=== PATIENT | male | born 1995 | race Caucasian/White ===

== ENCOUNTER 2024-12-16 10:09 | Outpatient (REF) | payer OTHER, SELFPAY ==
[2024-12-16 12:59] LABS: MANUAL DIFF FLAG NO
[2024-12-16 13:17] LABS: Hematocrit 42.7 % (42.0-52.0); Hemoglobin 14.8 g/dl (14.0-18.0); Imm Gran Abs Auto 0.03 X10*3/uL (0.00-0.03); Imm Gran Pct Auto 0.6 % (0.0-0.4); Lymphocytes Absolute Auto 2.1 X10*3/uL (1.2-4.9); Mean Corpuscular HGB Conc 34.7 g/dl (31.0-36.0); Mean Corpuscular Hemoglobin 30.7 pg (27.0-33.0); Mean Corpuscular Volume 88.6 fL (80.0-98.0); NRBC Abs Auto 0.000 X10*3/uL (0.0-0.012); NRBC Pct Auto 0.0 /100WBC (0.0-0.2); Platelet Count 177 X10*3/uL (160-400); Red Blood Count 4.82 X10*6/uL (4.60-5.80); White Blood Count 4.8 X10*3/uL (4.8-10.8)
[2024-12-16 13:27] LABS: Total Hemoglobin (HGBA1C) 3753.8994 umol/L
[2024-12-16 13:47] LABS: Alanine Aminotransferase 24 U/L (0-40); Albumin Level 4.8 g/dL (3.5-5.0); Alkaline Phosphatase 66 U/L (39-117); Anion Gap 10 (12-20); Aspartate Amino Transferase 22 U/L (5-37); Blood Urea Nitrogen 12 mg/dL (9-16); Calcium 9.1 mg/dL (8.4-10.2); Carbon Dioxide 30 mmol/L (22-29); Chloride 104 mmol/L (96-108); Cholesterol 151 mg/dL (<200); Estimated Glomerular Filt Rate > 60; HDL Cholesterol 53 mg/dL (>40); Potassium 4.4 mmol/L (3.3-5.1); Sodium 140 mmol/L (135-145); Total Protein 7.3 g/dL (6.5-8.0); Triglycerides 50 mg/dL (<150)
[2024-12-17 04:02] LABS: HBS Num1 32.13 mIU/mL (0-7.99); HBsAGNum1 0.49 S/CO (0.00-0.99); HIV Num 1 0.04 S/CO (0.00-0.99); Hepatitis B Surface Antigen Negative (Negative); ~HepC Num1 0.06 S/CO (0.00-0.79); ~Hepatitis B Surface Antibody REACTIVE (Nonreactive); ~Hepatitis C Antibody Nonreactive (Nonreactive)
== END 2024-12-16 10:10 | disposition home or self-care (01) ==
LOC: HO.HKASLDS 10:09
PROVIDERS: Visit Provider Student in an Organized Health Care Education/Training Program
DX: Z00.00 Encounter for general adult medical examination without abnormal findings (principal); Z01.89 Encounter for other specified special examinations; Z13.1 Encounter for screening for diabetes mellitus; Z13.220 Encounter for screening for lipoid disorders; Z13.6 Encounter for screening for cardiovascular disorders; Z11.3 Encounter for screening for infections with a predominantly sexual mode of transmission; Z76.89 Persons encountering health services in other specified circumstances; M25.511 Pain in right shoulder; R07.89 Other chest pain; M25.552 Pain in left hip; G89.29 Other chronic pain; E66.811 Obesity, class 1; Z68.30 Body mass index [BMI] 30.0-30.9, adult
CPT/HCPCS: 36415; 80053; 80061; 83036; 85025; 86706; 86803; 87340; 87389; 99202

== ENCOUNTER 2024-12-16 10:09 | Outpatient (AMB) | payer OTHER, SELFPAY ==
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
[2024-12-16 10:20] VITALS: BP 120/86; PULSE 63; RESP 16; TEMP 36.8; O2SAT 97; BMI 30.9
== END 2024-12-16 10:54 | disposition home or self-care (01) ==
LOC: HO.HMCFMS 10:09
PROVIDERS: PCP Student in an Organized Health Care Education/Training Program; Visit Provider Student in an Organized Health Care Education/Training Program
DX: M25.511 Pain in right shoulder (principal); G89.29 Other chronic pain; R07.89 Other chest pain; M25.552 Pain in left hip; Z01.89 Encounter for other specified special examinations; Z13.1 Encounter for screening for diabetes mellitus; Z13.220 Encounter for screening for lipoid disorders; Z13.6 Encounter for screening for cardiovascular disorders; E66.811 Obesity, class 1; Z11.3 Encounter for screening for infections with a predominantly sexual mode of transmission

== ENCOUNTER 2024-12-22 08:32 | Outpatient (REF) | payer OTHER, SELFPAY ==
--- NOTE | ~2024-12-22 | XR_ITS ---
EXAMINATION: XR SHOULDER, RIGHT CLINICAL INFORMATION: M25.511 - Pain in right shoulder COMPARISON: None available. TECHNIQUE: AP external rotation, Grashey, scapular Y, and axillary views of the right shoulder. FINDINGS: Normal bone mineralization. No fracture, dislocation, or suspicious bone lesion. Normal alignment. The glenohumeral joint is normal. The AC joint is normal. There is a type II acromion. No undersurface spurring. The subacromial space is preserved. Remainder of the soft tissue and bony structures appear normal. XR/XR shoulder RT min 2V IMPRESSION: Normal right shoulder. Electronically signed by: Agusto Rebollar MD 12/22/2024 09:14 AM EDT RP
--- NOTE | ~2024-12-22 | XR_ITS ---
EXAMINATION: XR HIP, LEFT CLINICAL INFORMATION: Z00.00 - Encounter for general adult medical examination without abnorma... COMPARISON: None available. TECHNIQUE: AP pelvis, and 2 views of the left hip. FINDINGS: No fracture. Alignment is anatomic. Pelvis is intact. Hip joint spaces are maintained. Normal acetabular coverage bilaterally. Normal femoral head contours without evidence of AVN. Soft tissues are unremarkable. XR/XR hip LT w PEL1V IMPRESSION: Normal pelvis and left hip. Electronically signed by: Agusto Rebollar MD 12/22/2024 09:16 AM EDT
--- NOTE | 2024-12-22 08:38 | ECG_ITS ---
Test Reason : CP Blood Pressure : */* mmHG Vent. Rate : 67 BPM Atrial Rate : 67 BPM P-R Int : 144 ms QRS Dur : 100 ms QT Int : 374 ms P-R-T Axes : 47 43 33 degrees QTcB Int : 395 ms Sinus rhythm with Sinus Arrhythmia Otherwise normal ECG No previous ECGs available Referred By: Hill Vera Electronically Signed By: FERNANDO HENDERSON
== END 2024-12-22 08:33 | disposition home or self-care (01) ==
LOC: HO.XRAY 08:32
PROVIDERS: PCP Student in an Organized Health Care Education/Training Program; Visit Provider Student in an Organized Health Care Education/Training Program
DX: Z00.00 Encounter for general adult medical examination without abnormal findings (principal); R07.9 Chest pain, unspecified; M25.511 Pain in right shoulder
CPT/HCPCS: 73030; 73502; 93005

== ENCOUNTER → 2024-12-22 08:38 | Outpatient (BNV) | payer OTHER, SELFPAY | PROVIDERS: PCP Student in an Organized Health Care Education/Training Program; Visit Provider Internal Medicine | DX: R07.9 Chest pain, unspecified (principal) | CPT/HCPCS: 93010 ==

== ENCOUNTER → 2024-12-22 08:53 | Outpatient (BNV) | payer OTHER, SELFPAY | PROVIDERS: PCP Student in an Organized Health Care Education/Training Program; Visit Provider Radiology Diagnostic Radiology | DX: Z00.00 Encounter for general adult medical examination without abnormal findings (principal); M25.511 Pain in right shoulder | CPT/HCPCS: 73030; 73502 ==

== ENCOUNTER 2024-12-22 10:03 | Outpatient (REF) | payer OTHER, SELFPAY ==
[2024-12-22 14:04] LABS: Appearance Urine Clear; Glucose Urine UA Negative (Negative); PH 7.5 (5.0-9.0); Specific Gravity - Urine 1.020 (1.005-1.025)
== END 2024-12-22 10:04 | disposition home or self-care (01) ==
LOC: HO.WFDLDS 10:03
PROVIDERS: Visit Provider Student in an Organized Health Care Education/Training Program
DX: Z00.00 Encounter for general adult medical examination without abnormal findings (principal); R07.9 Chest pain, unspecified; M25.511 Pain in right shoulder
CPT/HCPCS: 81003

== ENCOUNTER 2024-12-30 08:17 | Outpatient (AMB) | payer OTHER, SELFPAY ==
--- NOTE | 2024-12-30 08:19 | MHC.PC.OV ---
Vital Signs 12/30/24 08:22 Height 6 ft 1.35 in Weight 237 lb 2 oz BMI 31.0 BP 120/86 Blood Pressure Location Lt brachial Position Sitting Respiration 16 Pulse 70 Pulse Source Pulse Oximeter Temp 98.1 F Temp Source Oral Pulse Oximetry (%) 98 Oxygen Delivery Method Room Air Intake Visit Reasons: 2 week follow up Intake Note: right shoulder and left hip. cant lift heavy items shoulder will hurt same with hip. 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 Chest pain: - The patient reports experiencing chest pain, which was present this morning upon waking. - The pain is described as obnoxious but alleviated by stretching. - Previous ECG normal, and a chest x-ray is planned to rule out any underlying issues. Right shoulder pain: - The patient reports right shoulder pain, which is being referred to physical therapy for management. Left hip pain: - The patient reports left hip pain, which is also being referred to physical therapy for management. Review of Systems - Musculoskeletal: Reports right shoulder pain and left hip pain. - Cardiovascular: Reports chest pain upon waking, denies any other cardiovascular symptoms. 10-point ROS reviewed and negative except as noted in HPI Past Medical History Health Maintenance - Referral to physical therapy for musculoskeletal pain management. Physical Exam General: Well-appearing, in no acute distress. Vital signs: Within normal limits. HEENT: Normocephalic, atraumatic. PERRLA, EOMI. Conjunctiva clear, sclera anicteric. Oropharynx clear, mucous membranes moist. TMs intact bilaterally. Neck: Supple, no lymphadenopathy, no thyromegaly, no JVD or carotid bruits. Cardiovascular: RRR, normal S1/S2, no murmurs, rubs, or gallops. Peripheral pulses 2+ and symmetric. No edema. Respiratory: Lungs clear to auscultation bilaterally, no wheezes, rales, or rhonchi. Normal effort. Abdomen: Soft, non-tender, non-distended. Normoactive bowel sounds. No hepatosplenomegaly, no masses. MSK: Full range of motion, no joint swelling or deformity. Normal gait. Referred to physical therapy for right shoulder and left hip. Skin: Warm, dry, intact. No rashes, lesions, or pallor. Neuro: Alert and oriented x3. Cranial nerves II-XII intact. Strength 5/5 throughout. Sensation intact. Reflexes 2+ symmetric. Normal coordination and gait. Psych: Appropriate mood and affect. Normal judgment and insight. Plan 1. Encounter for lab results 2. encounter for imaging results 3. Chest Pain - Plan includes obtaining a chest x-ray to rule out any underlying conditions. - Ibuprofen prescribed for pain management. 4. Right Shoulder Pain - Referral to physical therapy for management. 5. Left Hip Pain - Referral to physical therapy for management. Discussion Notes I discussed with the patient that his chest pain is likely musculoskeletal in nature given the normal ECG and imaging results. I recommended a chest x-ray to rule out any other conditions and prescribed ibuprofen for pain management. I also referred him to physical therapy for his shoulder and hip pain. We discussed the importance of monitoring heart rate during exercise and calculating target heart rate zones for optimal cardiovascular health. Follow-up was advised after the chest x-ray results are available. Patient Instructions - Take ibuprofen as prescribed for pain management. - Attend physical therapy sessions for shoulder and hip pain. - Follow up after obtaining the chest x-ray. - Monitor heart rate during exercise and calculate target heart rate zones. [facility] Medical History (Updated 12/30/24 @ 08:26 by Hill Vera MD) Left hip pain Right shoulder pain Class 1 obesity Family History Father No problems noted. Mother No problems noted. Social History Housing: House Alcohol intake: current Alcohol intake frequency: a few times a week Patient Tobacco Use Status: Never used Tobacco service: Yes Current occupational status: employed Cognitive needs: No Hearing needs: No Vision needs: No Questionnaire PHQ-9 Over the last 2 weeks, how often have you been bothered by any of the following problems? 1. Little interest or pleasure in doing things: not at all 2. Feeling down, depressed, or hopeless: not at all 3. Trouble falling or staying asleep, or sleeping too much: not at all 4. Feeling tired or having little energy: not at all 5. Poor appetite or overeating: not at all 6. Feeling bad about yourself - or that you are a failure or have let yourself or your family down: not at all 7. Trouble concentrating on things, such as reading the newspaper or watching television: not at all 8. Moving or speaking so slowly that other people could have noticed. Or the opposite - being so fidgety or restless that you have been moving around a lot more than usual: not at all 9. Thoughts that you would be better off or of hurting yourself in some way: not at all Total score: 0 Depression Screening Interpretation: Negative Depression Screening Done: Yes Source: Developed by Drs. James Mcbride, Maxine Resendiz, Raman Luke and colleagues, with an educational beth from [employer]. Thrive Questionnaire Date Thrive assessed: 12/23/24 I am a: Patient What is your living situation today?: I have a steady place to live Within the past 12 months, did the food you bought not last and you didn't have the money to get more?: Never true Within the past 12 months, did you worry whether your food would run out before you got money to buy more?: Never true Do you have trouble paying for medicines?: No Do you have trouble getting transportation to medical appointments?: No Do you have trouble paying your heating and electricity bill?: No Do you have trouble taking care of your child, family member or friend?: No Do you have trouble with day-to-day activities such as bathing, preparing meals, shopping, managing finances, etc.?: No Are you currently unemployed and looking for a job?: No Are you interested in more education?: I choose not to answer this question Please select the resources that you would like help with: None Currently or been in a relationship where the following occur: No concerns reported THRIVE Score: 0 AUDIT C Alcohol Use Questionnaire (AUDIT-C) 1. How often do you have a drink containing alcohol?: 2-4 times a month 2. How many drinks containing alcohol do you have on a typical day when you are drinking?: 1 or 2 3. How often do you have six or more drinks on one occasion?: Never Total Score: 2 Score Reviewed/Action Taken: No DAVIDA-7 AMB Questionnaire DAVIDA-7 Date DAVIDA - 7 assessed: 12/16/24 Feeling nervous, anxious, or on edge: 1 = Several days Not being able to stop or control worryin = Not at all Worrying too much about different things: 0 = Not at all Trouble relaxin = Not at all Being so restless that it is hard to sit still: 0 = Not at all Becoming easily annoyed or irritable: 0 = Not at all Feeling afraid as if something awful might happen: 0 = Not at all Total DAVIDA-7 score (0-4 normal; 5-9 mild; 10-14 moderate; 15-21 severe): 1 Source: Developed by Drs. James Mcbride, Maxine Resendiz, Raman Luke and colleagues, with an educational beth from [employer]. Physical exam (Primary Care) Vital Signs: Last Vital Signs Temp 98.1 F 12/30/24 08:22 Pulse 70 12/30/24 08:22 Resp 16 12/30/24 08:22 BP 120/86 12/30/24 08:22 Pulse Ox 98 12/30/24 08:22 Oxygen Delivery Method Room Air 12/30/24 08:22 BMI result Body Mass Index 31.0 Tobacco/Smoking Status: Tobacco use Status Tobacco use date assessed 12/16/24 12/30/24 08:21 Patient Tobacco Use Status Never used Tobacco 12/30/24 08:21 PHQ-9: PHQ-9 Score PHQ-9: Total score 0 12/30/24 08:21 Depression Screening Interpretation: Negative Thrive Assessment: Date of Thrive Assessment Date Thrive assessed 12/23/24 12/30/24 08:21 Currently or been in a relationship where the following occur: No concerns reported Coding Level of Care Code Est Pt Level 3 (87318) Diagnoses Left hip pain M25.552 Right shoulder pain M25.511 Class 1 obesity E66.811 Encounter for laboratory test Z01.89 Costochondritis M94.0 Assessment & Plan Assessment & Plan (1) Left hip pain: Code(s): M25.552 - Pain in left hip Category: Medical (2) Right shoulder pain: Code(s): M25.511 - Pain in right shoulder Category: Medical (3) Class 1 obesity: Code(s): E66.811 - Obesity, class 1 Category: Medical (4) Encounter for laboratory test: Code(s): Z01.89 - Encounter for other specified special examinations (5) Costochondritis: Code(s): M94.0 - Chondrocostal junction syndrome [Tietze] Plan Orders: Orders XR chest 2V Today R07.9 - Chest pain, unspecified PT Evaluation and Treatment Today E66.811 - Obesity, class 1, M25.511 - Pain in right shoulder, M25.552 - Pain in left hip Medications: New ibuprofen 800 mg PO Q8H 30 tabs 0RF
[2024-12-30 08:22] VITALS: BP 120/86; PULSE 70; RESP 16; TEMP 36.7; O2SAT 98; BMI 31.0
== END 2024-12-30 08:35 | disposition home or self-care (01) ==
LOC: HO.HMCFMS 08:18
PROVIDERS: Visit Provider Student in an Organized Health Care Education/Training Program
DX: M25.552 Pain in left hip (principal); M25.511 Pain in right shoulder; E66.811 Obesity, class 1; Z68.31 Body mass index [BMI] 31.0-31.9, adult; M94.0 Chondrocostal junction syndrome [Tietze]

== ENCOUNTER → 2024-12-30 08:17 | Outpatient (BNVA) | payer OTHER, SELFPAY | PROVIDERS: Visit Provider Student in an Organized Health Care Education/Training Program | DX: M25.511 Pain in right shoulder (principal); M25.552 Pain in left hip; E66.811 Obesity, class 1; Z68.31 Body mass index [BMI] 31.0-31.9, adult; M94.0 Chondrocostal junction syndrome [Tietze]; Z13.31 Encounter for screening for depression | CPT/HCPCS: 96127; 99212 ==

== ENCOUNTER 2025-01-06 07:58 | Outpatient (REF) | payer OTHER, SELFPAY ==
--- NOTE | ~2025-01-06 | XR_ITS ---
EXAMINATION: XR CHEST CLINICAL INFORMATION: R07.9 - Chest pain, unspecified COMPARISON: None available. TECHNIQUE: PA and lateral views FINDINGS: No hyperinflation. No consolidation, pleural effusion or pneumothorax. Cardiomediastinal silhouette size is normal. No gross acute fracture or listhesis in the axial skeleton. XR/XR chest 2V IMPRESSION: No acute airspace disease. Electronically signed by: Taiwo Irene MD 01/06/2025 08:15 AM EDT
== END 2025-01-06 07:59 | disposition home or self-care (01) ==
LOC: HO.XRAY 07:58
PROVIDERS: PCP Student in an Organized Health Care Education/Training Program; Visit Provider Student in an Organized Health Care Education/Training Program
DX: R07.9 Chest pain, unspecified (principal)
CPT/HCPCS: 71046

== ENCOUNTER → 2025-01-06 08:01 | Outpatient (BNV) | payer OTHER, SELFPAY | PROVIDERS: PCP Student in an Organized Health Care Education/Training Program; Visit Provider Radiology Diagnostic Radiology | DX: R07.9 Chest pain, unspecified (principal) | CPT/HCPCS: 71046 ==